=== PATIENT | male | born 1985 | race Caucasian/White ===

== ENCOUNTER 2022-07-02 08:14 | Outpatient (REF) | payer OTHER, SELFPAY ==
[2022-07-02 08:38] LABS: MANUAL DIFF FLAG NO
[2022-07-02 09:20] LABS: Basophils Percent Auto 0.5 % (0-2); Eosinophils Absolute Auto 0.3 X10*3/uL (0.0-0.4); Eosinophils Percent Auto 5.2 % (0-4); Hematocrit 39.9 % (42.0-52.0); Hemoglobin 12.5 g/dl (14.0-18.0); Imm Gran Abs Auto 0.01 X10*3/uL (0.00-0.03); Imm Gran Pct Auto 0.2 % (0.0-0.4); Lymphocytes Absolute Auto 1.5 X10*3/uL (1.2-4.9); Lymphocytes Percent Auto 27.2 % (20-40); Mean Corpuscular HGB Conc 31.3 g/dl (31.0-36.0); Mean Corpuscular Hemoglobin 26.5 pg (27.0-33.0); Mean Corpuscular Volume 84.7 fL (80.0-98.0); Monocytes Absolute Auto 0.3 X10*3/uL (0.1-1.2); Monocytes Percent Auto 5.6 % (2-11); Neutrophils Absolute Auto 3.4 x10*3/uL (2.0-8.3); Neutrophils Percent Auto 61.3 % (45-73); Platelet Count 128 X10*3/uL (160-400); Red Blood Count 4.71 X10*6/uL (4.60-5.80); Red Cell Distribution Width 14.1 % (11.0-16.0); White Blood Count 5.6 X10*3/uL (4.8-10.8)
[2022-07-02 09:33] LABS: Alanine Aminotransferase 49 U/L (0-40); Albumin Level 3.8 g/dL (3.5-5.0); Alkaline Phosphatase 188 U/L (39-117); Anion Gap 12 (12-20); Aspartate Amino Transferase 72 U/L (5-37); Bilirubin Total 0.4 mg/dL (0.0-1.0); Blood Urea Nitrogen 7 mg/dL (9-16); Calcium 8.8 mg/dL (8.4-10.2); Carbon Dioxide 30 mmol/L (22-29); Chloride 104 mmol/L (96-108); Cholesterol 178 mg/dL; Estimated Glomerular Filt Rate > 60; Glucose Fasting 153 mg/dL (60-99); HDL Cholesterol 44 mg/dL; LDL Cholesterol Calculated 119 mg/dl; Potassium 4.1 mmol/L (3.3-5.1); Sodium 142 mmol/L (135-145); Total Protein 7.5 g/dL (6.5-8.0); Triglycerides 78 mg/dL
[2022-07-08 20:26] LABS: Testosterone, Free 1.6 pg/mL (35.0-155.0); Testosterone, Total 19 ng/dL (250-1100)
== END 2022-07-02 08:15 | disposition home or self-care (01) ==
LOC: HO.LAB 08:14
PROVIDERS: PCP Internal Medicine; Visit Provider Internal Medicine
DX: Z00.00 Encounter for general adult medical examination without abnormal findings (principal); R53.83 Other fatigue; G47.33 Obstructive sleep apnea (adult) (pediatric)
CPT/HCPCS: 36415; 80053; 80061; 82947; 84402; 84403; 85025

== ENCOUNTER → 2022-12-09 08:48 | Outpatient (BNVA) | payer OTHER, SELFPAY | PROVIDERS: PCP Internal Medicine; Visit Provider Physician Assistant Medical | DX: S00.83XA Contusion of other part of head, initial encounter (principal); S50.12XA Contusion of left forearm, initial encounter; S50.11XA Contusion of right forearm, initial encounter; W10.2XXA Fall (on)(from) incline, initial encounter; M23.92 Unspecified internal derangement of left knee | CPT/HCPCS: 73564; 99203 ==

== ENCOUNTER → 2022-12-23 07:56 | Outpatient (BNVA) | payer OTHER, SELFPAY | PROVIDERS: PCP Internal Medicine; Visit Provider Physician Assistant Medical | DX: M23.92 Unspecified internal derangement of left knee (principal); S00-T88 Injury, poisoning and certain other consequences of external causes; W18.30XD Fall on same level, unspecified, subsequent encounter | CPT/HCPCS: 99213 ==

== ENCOUNTER 2023-02-14 11:01 | Outpatient (REF) | payer OTHER, SELFPAY ==
[2023-02-14 13:37] LABS: MANUAL DIFF FLAG NO
[2023-02-14 13:41] LABS: Basophils Percent Auto 0.7 % (0-2); Eosinophils Absolute Auto 0.4 X10*3/uL (0.0-0.4); Hematocrit 38.8 % (42.0-52.0); Hemoglobin 11.9 g/dl (14.0-18.0); Imm Gran Abs Auto 0.02 X10*3/uL (0.00-0.03); Imm Gran Pct Auto 0.3 % (0.0-0.4); Lymphocytes Absolute Auto 1.7 X10*3/uL (1.2-4.9); Lymphocytes Percent Auto 27.9 % (20-40); Mean Corpuscular HGB Conc 30.7 g/dl (31.0-36.0); Mean Corpuscular Hemoglobin 26.3 pg (27.0-33.0); Mean Corpuscular Volume 85.7 fL (80.0-98.0); Mean Platelet Volume 11.9 fL (9.4-12.4); Monocytes Absolute Auto 0.4 X10*3/uL (0.1-1.2); Monocytes Percent Auto 6.4 % (2-11); Neutrophils Absolute Auto 3.5 x10*3/uL (2.0-8.3); Neutrophils Percent Auto 58.7 % (45-73); Platelet Count 108 X10*3/uL (160-400); Red Blood Count 4.53 X10*6/uL (4.60-5.80); Red Cell Distribution Width 14.7 % (11.0-16.0)
[2023-02-14 13:52] LABS: Estimated Average Glucose 105 mg/dL; Hemoglobin A1c % 5.3 %
[2023-02-14 13:54] LABS: Alanine Aminotransferase 21 U/L (0-40); Albumin Level 3.6 g/dL (3.5-5.0); Alkaline Phosphatase 144 U/L (39-117); Anion Gap 13 (12-20); Aspartate Amino Transferase 29 U/L (5-37); Bilirubin Total 0.4 mg/dL (0.0-1.0); Blood Urea Nitrogen 14 mg/dL (9-16); Calcium 8.7 mg/dL (8.4-10.2); Carbon Dioxide 29 mmol/L (22-29); Chloride 104 mmol/L (96-108); Cholesterol 160 mg/dL; Estimated Glomerular Filt Rate > 60; Glucose Random 108 mg/dL (60-115); Potassium 4.2 mmol/L (3.3-5.1); Sodium 142 mmol/L (135-145)
== END 2023-02-14 11:02 | disposition home or self-care (01) ==
LOC: HO.10HDL 11:01
PROVIDERS: Visit Provider Internal Medicine
DX: F98.8 Other specified behavioral and emotional disorders with onset usually occurring in childhood and adolescence (principal); K21.9 Gastro-esophageal reflux disease without esophagitis; E66.9 Obesity, unspecified; E11.9 Type 2 diabetes mellitus without complications
CPT/HCPCS: 36415; 80053; 82465; 83036; 85025

== ENCOUNTER 2023-08-30 16:39 | Outpatient (REF) | payer OTHER, SELFPAY ==
[2023-08-30 16:50] LABS: MANUAL DIFF FLAG NO
[2023-08-30 18:00] LABS: Basophils Percent Auto 0.5 % (0-2); Eosinophils Absolute Auto 0.3 X10*3/uL (0.0-0.4); Hematocrit 41.2 % (42.0-52.0); Hemoglobin 12.8 g/dl (14.0-18.0); Imm Gran Abs Auto 0.01 X10*3/uL (0.00-0.03); Imm Gran Pct Auto 0.2 % (0.0-0.4); Lymphocytes Absolute Auto 2.1 X10*3/uL (1.2-4.9); Lymphocytes Percent Auto 33.1 % (20-40); Mean Corpuscular HGB Conc 31.1 g/dl (31.0-36.0); Mean Corpuscular Hemoglobin 25.9 pg (27.0-33.0); Mean Corpuscular Volume 83.2 fL (80.0-98.0); Mean Platelet Volume 11.8 fL (9.4-12.4); Monocytes Absolute Auto 0.4 X10*3/uL (0.1-1.2); Monocytes Percent Auto 6.8 % (2-11); Neutrophils Absolute Auto 3.5 x10*3/uL (2.0-8.3); Neutrophils Percent Auto 54.4 % (45-73); Platelet Count 120 X10*3/uL (160-400); Red Blood Count 4.95 X10*6/uL (4.60-5.80); Red Cell Distribution Width 14.4 % (11.0-16.0); White Blood Count 6.4 X10*3/uL (4.8-10.8)
[2023-08-30 18:21] LABS: Anion Gap 10 (12-20); Blood Urea Nitrogen 9 mg/dL (9-16); Calcium 8.8 mg/dL (8.4-10.2); Carbon Dioxide 28 mmol/L (22-29); Chloride 105 mmol/L (96-108); Estimated Glomerular Filt Rate > 60; Glucose Random 149 mg/dL (60-115); Iron 43 mcg/dL (45-160); Percent Iron Saturation 14 % (15-50); Potassium 3.8 mmol/L (3.3-5.1); Sodium 139 mmol/L (135-145); Total Iron Binding Capacity 311 mcg/dL (228-428); Unsaturated Iron Binding 268 ug/dL
== END 2023-08-30 16:40 | disposition home or self-care (01) ==
LOC: HO.LAB 16:39
PROVIDERS: PCP Internal Medicine; Visit Provider Internal Medicine
DX: D64.9 Anemia, unspecified (principal); K21.9 Gastro-esophageal reflux disease without esophagitis; F98.8 Other specified behavioral and emotional disorders with onset usually occurring in childhood and adolescence
CPT/HCPCS: 36415; 80048; 83540; 85025

== ENCOUNTER 2024-03-26 10:15 | Outpatient (REF) | payer OTHER, SELFPAY ==
[2024-03-26 11:07] LABS: MANUAL DIFF FLAG NO
[2024-03-26 11:11] LABS: Basophils Percent Auto 0.6 % (0-2); Eosinophils Absolute Auto 0.2 X10*3/uL (0.0-0.4); Eosinophils Percent Auto 4.3 % (0-4); Hematocrit 41.9 % (42.0-52.0); Hemoglobin 13.3 g/dl (14.0-18.0); Imm Gran Abs Auto 0.01 X10*3/uL (0.00-0.03); Imm Gran Pct Auto 0.2 % (0.0-0.4); Lymphocytes Absolute Auto 1.5 X10*3/uL (1.2-4.9); Lymphocytes Percent Auto 27.3 % (20-40); Mean Corpuscular HGB Conc 31.7 g/dl (31.0-36.0); Mean Corpuscular Hemoglobin 26.2 pg (27.0-33.0); Mean Corpuscular Volume 82.6 fL (80.0-98.0); Mean Platelet Volume 11.1 fL (9.4-12.4); Monocytes Absolute Auto 0.4 X10*3/uL (0.1-1.2); Monocytes Percent Auto 6.5 % (2-11); Neutrophils Absolute Auto 3.3 x10*3/uL (2.0-8.3); Neutrophils Percent Auto 61.1 % (45-73); Red Blood Count 5.07 X10*6/uL (4.60-5.80); Red Cell Distribution Width 15.2 % (11.0-16.0); White Blood Count 5.4 X10*3/uL (4.8-10.8)
[2024-03-26 11:12] LABS: Platelet Count 99 X10*3/uL (160-400)
[2024-03-26 11:25] LABS: Alanine Aminotransferase 20 U/L (0-40); Albumin Level 3.5 g/dL (3.5-5.0); Alkaline Phosphatase 93 U/L (39-117); Anion Gap 14 (12-20); Aspartate Amino Transferase 35 U/L (5-37); Bilirubin Total 0.9 mg/dL (0.0-1.0); Blood Urea Nitrogen 10 mg/dL (9-16); Calcium 8.6 mg/dL (8.4-10.2); Carbon Dioxide 29 mmol/L (22-29); Chloride 105 mmol/L (96-108); Cholesterol 158 mg/dL (<200); Estimated Glomerular Filt Rate > 60; Glucose Fasting 124 mg/dL (60-99); HDL Cholesterol 46 mg/dL (>40); LDL Cholesterol Calculated 94 mg/dL (<100); Potassium 4.2 mmol/L (3.3-5.1); Sodium 144 mmol/L (135-145); Total Protein 7.3 g/dL (6.5-8.0); Triglycerides 94 mg/dL (<150)
== END 2024-03-26 10:16 | disposition home or self-care (01) ==
LOC: HO.10HDL 10:15
PROVIDERS: Visit Provider Internal Medicine
DX: K76.0 Fatty (change of) liver, not elsewhere classified (principal); K21.9 Gastro-esophageal reflux disease without esophagitis; D64.9 Anemia, unspecified; F90.0 Attention-deficit hyperactivity disorder, predominantly inattentive type
CPT/HCPCS: 36415; 80053; 80061; 85025

== ENCOUNTER 2024-09-18 09:35 | Outpatient (REF) | payer OTHER, SELFPAY ==
[2024-09-18 10:52] LABS: MANUAL DIFF FLAG NO
[2024-09-18 11:01] LABS: Basophils Percent Auto 0.8 % (0-2); Eosinophils Absolute Auto 0.2 X10*3/uL (0.0-0.4); Eosinophils Percent Auto 5.1 % (0-4); Hematocrit 38.8 % (42.0-52.0); Hemoglobin 12.4 g/dl (14.0-18.0); Lymphocytes Absolute Auto 1.3 X10*3/uL (1.2-4.9); Lymphocytes Percent Auto 34.4 % (20-40); Mean Corpuscular Hemoglobin 25.7 pg (27.0-33.0); Mean Corpuscular Volume 80.5 fL (80.0-98.0); Mean Platelet Volume 11.7 fL (9.4-12.4); Monocytes Absolute Auto 0.3 X10*3/uL (0.1-1.2); Monocytes Percent Auto 8.2 % (2-11); Neutrophils Percent Auto 51.5 % (45-73); Platelet Count 107 X10*3/uL (160-400); Red Blood Count 4.82 X10*6/uL (4.60-5.80); Red Cell Distribution Width 14.8 % (11.0-16.0); White Blood Count 3.9 X10*3/uL (4.8-10.8)
[2024-09-18 11:10] LABS: Estimated Average Glucose 212 mg/dL; Hemoglobin A1C 236.8664 umol/L; Total Hemoglobin (HGBA1C) 3169.7563 umol/L
[2024-09-18 11:19] LABS: Alanine Aminotransferase 25 U/L (0-40); Albumin Level 3.5 g/dL (3.5-5.0); Alkaline Phosphatase 135 U/L (39-117); Anion Gap 8 (12-20); Aspartate Amino Transferase 54 U/L (5-37); Bilirubin Total 0.7 mg/dL (0.0-1.0); Blood Urea Nitrogen 7 mg/dL (9-16); Calcium 8.3 mg/dL (8.4-10.2); Carbon Dioxide 31 mmol/L (22-29); Chloride 103 mmol/L (96-108); Estimated Glomerular Filt Rate > 60; Glucose Random 221 mg/dL (60-115); Potassium 3.8 mmol/L (3.3-5.1); Sodium 138 mmol/L (135-145); Total Protein 7.2 g/dL (6.5-8.0)
[2024-09-18 11:37] LABS: Free T4 (Free Thyroxine) 0.81 ng/dL (0.71-1.85); Thyroid Stimulating Hormone 1.22 uIU/mL (0.32-4.0)
== END 2024-09-18 09:36 | disposition home or self-care (01) ==
LOC: HO.10HDL 09:35
PROVIDERS: Visit Provider Internal Medicine
DX: K76.0 Fatty (change of) liver, not elsewhere classified (principal); G47.33 Obstructive sleep apnea (adult) (pediatric); R73.03 Prediabetes
CPT/HCPCS: 36415; 80053; 83036; 84439; 84443; 85025

== ENCOUNTER → 2024-11-06 07:54 | Outpatient (BNVA) | payer OTHER, SELFPAY | PROVIDERS: PCP Internal Medicine; Visit Provider Physician Assistant Medical | DX: S16.1XXA Strain of muscle, fascia and tendon at neck level, initial encounter (principal); S29.012A Strain of muscle and tendon of back wall of thorax, initial encounter; S00.93XA Contusion of unspecified part of head, initial encounter; S50.02XA Contusion of left elbow, initial encounter; W00.0XXA Fall on same level due to ice and snow, initial encounter | CPT/HCPCS: 99203 ==

== ENCOUNTER → 2024-11-13 13:49 | Outpatient (BNVA) | payer OTHER, SELFPAY | PROVIDERS: PCP Internal Medicine; Visit Provider Registered Nurse | DX: S16.1XXA Strain of muscle, fascia and tendon at neck level, initial encounter (principal); S29.012A Strain of muscle and tendon of back wall of thorax, initial encounter; S00.93XA Contusion of unspecified part of head, initial encounter; S50.02XA Contusion of left elbow, initial encounter; W00.0XXA Fall on same level due to ice and snow, initial encounter; Z02.79 Encounter for issue of other medical certificate | CPT/HCPCS: 99213 ==

== ENCOUNTER → 2024-11-20 13:28 | Outpatient (BNVA) | payer OTHER, SELFPAY | PROVIDERS: PCP Internal Medicine; Visit Provider Physician Assistant Medical | DX: S16.1XXA Strain of muscle, fascia and tendon at neck level, initial encounter (principal); S29.012A Strain of muscle and tendon of back wall of thorax, initial encounter; W00.0XXA Fall on same level due to ice and snow, initial encounter; Z02.79 Encounter for issue of other medical certificate | CPT/HCPCS: 99213 ==

== ENCOUNTER 2024-12-28 14:49 | Outpatient (REF) | payer OTHER, SELFPAY ==
[2024-12-28 17:12] LABS: Hemoglobin 12.8 g/dl (14.0-18.0); Monocytes Absolute Auto 0.5 X10*3/uL (0.1-1.2); PLT CLUMP 1; SCAN SMEAR FLAG 1
[2024-12-28 17:14] LABS: Basophils Percent Auto 0.4 % (0-2); Eosinophils Absolute Auto 0.3 X10*3/uL (0.0-0.4); Eosinophils Percent Auto 4.6 % (0-4); Hematocrit 40.5 % (42.0-52.0); Imm Gran Abs Auto 0.02 X10*3/uL (0.00-0.03); Imm Gran Pct Auto 0.3 % (0.0-0.4); Lymphocytes Absolute Auto 2.2 X10*3/uL (1.2-4.9); Lymphocytes Percent Auto 32.1 % (20-40); Mean Corpuscular HGB Conc 31.6 g/dl (31.0-36.0); Mean Corpuscular Volume 82.3 fL (80.0-98.0); Mean Platelet Volume 11.2 fL (9.4-12.4); Monocytes Percent Auto 8.1 % (2-11); Neutrophils Absolute Auto 3.6 x10*3/uL (2.0-8.3); Neutrophils Percent Auto 54.5 % (45-73); Red Blood Count 4.92 X10*6/uL (4.60-5.80); Red Cell Distribution Width 15.4 % (11.0-16.0)
[2024-12-28 17:30] LABS: Estimated Average Glucose 137 mg/dL; Hemoglobin A1c % 6.4 % (<6.0); Total Hemoglobin (HGBA1C) 3426.6241 umol/L
[2024-12-28 17:32] LABS: MANUAL DIFF FLAG NO; Platelet Count 105 X10*3/uL (160-400); White Blood Count 6.7 X10*3/uL (4.8-10.8)
[2024-12-28 18:12] LABS: Alanine Aminotransferase 21 U/L (0-40); Albumin Level 3.6 g/dL (3.5-5.0); Anion Gap 8 (12-20); Aspartate Amino Transferase 42 U/L (5-37); Bilirubin Total 0.5 mg/dL (0.0-1.0); Blood Urea Nitrogen 10 mg/dL (9-16); Carbon Dioxide 29 mmol/L (22-29); Chloride 109 mmol/L (96-108); Estimated Glomerular Filt Rate > 60; Glucose Random 69 mg/dL (60-115); Iron 34 mcg/dL (45-160); Percent Iron Saturation 11 % (15-50); Potassium 3.9 mmol/L (3.3-5.1); Sodium 142 mmol/L (135-145); Total Iron Binding Capacity 315 mcg/dL (228-428); Total Protein 7.3 g/dL (6.5-8.0); Unsaturated Iron Binding 281 ug/dL
[2024-12-28 18:27] LABS: Alkaline Phosphatase 133 U/L (39-117)
[2024-12-28 20:28] LABS: Folate 9.3 ng/mL (> or = 4.0); Vitamin B12 688 pg/mL (200-900)
== END 2024-12-28 14:50 | disposition home or self-care (01) ==
LOC: HO.LAB 14:49
PROVIDERS: PCP Internal Medicine; Visit Provider Internal Medicine
DX: E11.69 Type 2 diabetes mellitus with other specified complication (principal); E66.01 Morbid (severe) obesity due to excess calories; Z68.42 Body mass index [BMI] 45.0-49.9, adult; R79.89 Other specified abnormal findings of blood chemistry; R41.840 Attention and concentration deficit; F32.9 Major depressive disorder, single episode, unspecified; F98.8 Other specified behavioral and emotional disorders with onset usually occurring in childhood and adolescence; Z79.84 Long term (current) use of oral hypoglycemic drugs; Z79.899 Other long term (current) drug therapy
CPT/HCPCS: 36415; 80053; 82607; 82746; 83036; 83540; 85025; 96127

== ENCOUNTER 2024-12-28 14:49 | Outpatient (AMB) | payer OTHER, SELFPAY ==
--- NOTE | 2024-12-28 14:53 | MHC.PC.OV ---
Vital Signs 12/28/24 14:55 Height 5 ft 10 in Weight 316 lb BMI 45.3 BP 126/70 Respiration 14 Pulse 77 Pulse Source Pulse Oximeter Temp 97.8 F Temp Source Temporal Artery Scan Pulse Oximetry (%) 98 Oxygen Delivery Method Room Air Intake Visit Reasons: Routine Cigar Roller Required: No Accompanied by: Self / Same As Patient Allergies No Known Allergies Allergy (Mild, Unverified 12/28/24 14:53) NONE Medication List - Last Reconciled 12/28/24 by Kayli Junior MD blood-glucose meter (FreeStyle [place] Lite kit) As directed dextroamphetamine-amphetamine 20 mg (Adderall) 20 mg PO BID 60 days fluoxetine 60 mg PO QAM glipizide ER 5 mg PO BID lancets (FreeStyle Lancets) As directed omeprazole 20 mg PO BID Ozempic (semaglutide) 1 mg (0.75 mL) subcut QWEEK NS Tobacco use date assessed: 12/28/24 Dental Screening Dental Screen Date: 12/28/24 Did you have a dental visit in the last 12 months?: Yes Did you have a dental problem in the last 6 months where you did not have access to dental care?: No HPI HPI Comments History of Present Illness Details 39 year old male with a past medical history of GERD, depression, ADD, anemia, opiate use disorder, newer diabetes presenting for follow up. Last seen Saman by PCP Type 2 DM: on glipizide ER 5mg bid and started on ozempic 0.25mg weekly. Reports fasting glucose now in 120s. Has lost a few pounds Mild pancytopenia on labs feeling okay will monitor BH: on adderall 20mg twice daily and prozac. Feels stable ROS CONSTITUTIONAL: Denies weight loss, fever and chills. HEENT: Denies changes in vision and hearing. RESPIRATORY: Denies SOB and cough. CV: Denies palpitations and CP GI: Denies abdominal pain, nausea, vomiting and diarrhea. : Denies dysuria and urinary frequency. MSK: Denies new myalgia and joint pain. SKIN: Denies rash and pruritus. NEUROLOGICAL: Denies headache PSYCHIATRIC: Denies recent changes in mood. PHYSICAL EXAM: GENERAL: Alert and oriented x 3. NAD EYES: EOMI. Anicteric. HENT: Moist mucous membranes. No scleral icterus. No cervical lymphadenopathy. LUNGS: Clear to auscultation bilaterally. CARDIOVASCULAR: Regular rate and rhythm. No murmur. No JVD. ABDOMEN: Soft, non-tender +bs EXTREMITIES: No edema. Non-tender. SKIN: No rashes or lesions. Warm. NEUROLOGIC: No focal neurological deficits. CN II-XII grossly intact PSYCHIATRIC: Cooperative. Appropriate mood and affect [facility] Medical History Type 2 diabetes mellitus associated with morbid obesity Family History Father Bone cancer Esophageal cancer Mother Emphysema lung Active asthma Ovarian cancer Social History Housing: Apartment Alcohol intake: current Alcohol intake frequency: does not drink Patient Tobacco Use Status: Former Tobacco user service: No Current occupational status: employed Cognitive needs: No Hearing needs: No Vision needs: No Questionnaire PHQ-9 Over the last 2 weeks, how often have you been bothered by any of the following problems? 1. Little interest or pleasure in doing things: not at all 2. Feeling down, depressed, or hopeless: not at all 3. Trouble falling or staying asleep, or sleeping too much: not at all 4. Feeling tired or having little energy: not at all 5. Poor appetite or overeating: not at all 6. Feeling bad about yourself - or that you are a failure or have let yourself or your family down: not at all 7. Trouble concentrating on things, such as reading the newspaper or watching television: not at all 8. Moving or speaking so slowly that other people could have noticed. Or the opposite - being so fidgety or restless that you have been moving around a lot more than usual: not at all 9. Thoughts that you would be better off or of hurting yourself in some way: not at all Total score: 0 Depression Screening Interpretation: Negative Depression Screening Done: Yes 25511 - PHQ-9 Billing: Yes Source: Developed by Drs. Isaac Ramírez, Charisma Holden, Pablito Rodrigues and colleagues, with an educational river from [employer] Thrive Questionnaire Date Thrive assessed: 12/28/24 I am a: Patient What is your living situation today?: I have a steady place to live Within the past 12 months, did the food you bought not last and you didn't have the money to get more?: Never true Within the past 12 months, did you worry whether your food would run out before you got money to buy more?: Never true Do you have trouble paying for medicines?: No Do you have trouble getting transportation to medical appointments?: No Do you have trouble paying your heating and electricity bill?: No Do you have trouble taking care of your child, family member or friend?: No Do you have trouble with day-to-day activities such as bathing, preparing meals, shopping, managing finances, etc.?: No Are you currently unemployed and looking for a job?: No Are you interested in more education?: No Please select the resources that you would like help with: None THRIVE Score: 0 AUDIT C Alcohol Use Questionnaire (AUDIT-C) 1. How often do you have a drink containing alcohol?: Never 3. How often do you have six or more drinks on one occasion?: Never Total Score: 0 PJ-7 AMB Questionnaire PJ-7 Date PJ - 7 assessed: 12/28/24 Feeling nervous, anxious, or on edge: 1 = Several days Not being able to stop or control worryin = Not at all Worrying too much about different things: 1 = Several days Trouble relaxin = Several days Being so restless that it is hard to sit still: 0 = Not at all Becoming easily annoyed or irritable: 1 = Several days Feeling afraid as if something awful might happen: 1 = Several days Total PJ-7 score (0-4 normal; 5-9 mild; 10-14 moderate; 15-21 severe): 5 Source: Developed by Drs. Isaac Ramírez, Charisma Holden, Pablito Rodrigues and colleagues, with an educational river from [employer]. Physical exam (Primary Care) Vital Signs: Last Vital Signs Temp 97.8 F 12/28/24 14:55 Pulse 77 12/28/24 14:55 Resp 14 12/28/24 14:55 BP 126/70 12/28/24 14:55 Pulse Ox 98 12/28/24 14:55 Oxygen Delivery Method Room Air 12/28/24 14:55 BMI result Body Mass Index 45.3 Tobacco/Smoking Status: Tobacco use Status Tobacco use date assessed 12/28/24 12/28/24 14:55 Patient Tobacco Use Status Former Tobacco user 12/28/24 15:03 PHQ-9: PHQ-9 Score PHQ-9: Total score 0 12/28/24 14:55 Depression Screening Interpretation: Negative Thrive Assessment: Date of Thrive Assessment Date Thrive assessed 12/28/24 12/28/24 14:55 Coding Level of Care Code New Pt Level 4 (06225) Complex EM visit Add On G2211 Diagnoses Type 2 diabetes mellitus associated with morbid obesity E11.69; E66.01 Abnormal CBC R79.89 Attention deficit R41.840 Additional Codes PHQ-9 - 74529 - PHQ-9 Billing: Yes ([id number]) Assessment & Plan Assessment & Plan (1) Type 2 diabetes mellitus associated with morbid obesity: Code(s): E11.69 - Type 2 diabetes mellitus with other specified complication; E66.01 - Morbid (severe) obesity due to excess calories Category: Medical (2) Abnormal CBC: Code(s): R79.89 - Other specified abnormal findings of blood chemistry Category: Medical (3) Attention deficit: Code(s): R41.840 - Attention and concentration deficit Category: Medical Plan 39 y/o to establish care Meds reconciled DM-improving control per patient. A1C due. Increase ozempic to 1mg weekly Return in 3 months Orders: Orders Vitamin B12 and Folate Today E11.69 - Type 2 diabetes mellitus with other specified complication, E66.01 - Morbid (severe) obesity due to excess calories, R79.89 - Other specified abnormal findings of blood chemistry Comprehensive Met. Panel 3 Months E11.69 - Type 2 diabetes mellitus with other specified complication, E66.01 - Morbid (severe) obesity due to excess calories Hemoglobin A1c Today E11.69 - Type 2 diabetes mellitus with other specified complication, E66.01 - Morbid (severe) obesity due to excess calories, R79.89 - Other specified abnormal findings of blood chemistry Complete Blood Count Auto Diff Today E11.69 - Type 2 diabetes mellitus with other specified complication, E66.01 - Morbid (severe) obesity due to excess calories, R79.89 - Other specified abnormal findings of blood chemistry IRON PROFILE Today E11.69 - Type 2 diabetes mellitus with other specified complication, E66.01 - Morbid (severe) obesity due to excess calories, R79.89 - Other specified abnormal findings of blood chemistry Hemoglobin A1c 3 Months E11.69 - Type 2 diabetes mellitus with other specified complication, E66.01 - Morbid (severe) obesity due to excess calories Comprehensive Met. Panel Today E11.69 - Type 2 diabetes mellitus with other specified complication, E66.01 - Morbid (severe) obesity due to excess calories Medications: New Ozempic (semaglutide) 1 mg (0.75 mL) subcut QWEEK 9 mL 3RF NS E11.69 - Type 2 diabetes mellitus with other specified complication, E66.01 - Morbid (severe) obesity due to excess calories, R79.89 - Other specified abnormal findings of blood chemistry Changed From dextroamphetamine-amphetamine 20 mg (Adderall) administer doses at least 4-6 hours apart; Partial Fill upon patient request. 20 mg PO BID 60 tabs 0RF R41.840 - Attention and concentration deficit To dextroamphetamine-amphetamine 20 mg (Adderall) administer doses at least 4-6 hours apart; Partial Fill upon patient request. 20 mg PO BID 60 days 120 tabs 0RF R41.840 - Attention and concentration deficit
[2024-12-28 14:55] VITALS: BP 126/70; PULSE 77; RESP 14; TEMP 36.6; O2SAT 98; BMI 45.3
== END 2024-12-28 15:27 | disposition home or self-care (01) ==
LOC: HO.HMCHD 14:50
PROVIDERS: PCP Internal Medicine; Visit Provider Internal Medicine
DX: E11.69 Type 2 diabetes mellitus with other specified complication (principal); E66.01 Morbid (severe) obesity due to excess calories; R79.89 Other specified abnormal findings of blood chemistry; R41.840 Attention and concentration deficit

== ENCOUNTER 2025-06-18 16:12 | Outpatient (AMB) | payer OTHER, SELFPAY ==
--- NOTE | 2025-06-18 16:17 | A.OFFPC_ITS ---
Vital Signs 06/18/25 16:22 Height 5 ft 10 in Weight 139.253 kg BMI 44.0 Respiration 16 Pulse 70 Pulse Source Pulse Oximeter Temp 98.2 F Temp Source Temporal Artery Scan Pulse Oximetry (%) 99 Oxygen Delivery Method Room Air Intake Visit Reasons: Routine - see comments Marketing Technology Coordinator Required: No Accompanied by: Self / Same As Patient Allergies No Known Allergies Allergy (Mild, Unverified 06/18/25 16:20) NONE Medication List - Last Reconciled 06/18/25 by TONY Escamilla blood-glucose meter (FreeStyle [place] Lite kit) As directed dextroamphetamine-amphetamine 20 mg (Adderall) 20 mg PO BID 30 days fluoxetine 60 mg (3 x 20 mg) PO DAILY lancets (FreeStyle Lancets) As directed omeprazole 40 mg PO BID Tobacco use date assessed: 12/28/24 Dental Screening Dental Screen Date: 12/28/24 HPI HPI Comments History of Present Illness Details 39-year-old male with history of GERD, a nxiety with panic, ADHD, type 2 diabetes, hyperlipidemia who is morbidly obese presents to the office today for management of chronic conditions/follow-up. Type 2 diabetes- fasting glucose around 90, no symptoms. Last hemoglobin A1c 6.4%. Continues on Ozempic 2 mg weekly but discontinued the glipizide due to lower sugars. Anxiety/ADHD- overall managed with fluoxetine 60mg, adderall 20mg BID. Does still struggle with agoraphobia. Has seen a therapist in the past, but has since worsened. Panic attacks occur about twice weekly. GERD-reporting symptoms of globus sensation and dysphagia intermittently ongoing for about a year. States he feels this when eating solids or swallowing pills. Feels symptoms are worse in the morning. He is compliant with omeprazole Concerns: Ingrown toenail b/l great toes. No purulent drainage Globus sensation/dysphagia as above Health maintenance: Colonoscopy is to start at age 46 Eye exam is up-to-date ROS: General: No fevers, malaise, unintentional weight loss HEENT: No blurred vision, diplopia. No sore throat, nasal congestion, rhinorrhea, sinus pain, ear pain Cardiovascular: No chest pain, palpitations, or leg edema Respiratory: No shortness of breath, wheezing, cough GI: see hpi MSK: No myalgia, back pain Neuro: No headaches, weakness, paresthesias Skin: No rashes or lesions. see hpi EXAM: Constitutional - Awake and Alert, No apparent distress Eyes - PERRL Cardiovascular - S1S2, RRR, No edema Respiratory - Normal lung expansion, Normal respiratory effort, No respiratory distress, CTA bilaterally Extremities - no calf tenderness bilaterally, no swelling Skin - Warm/Dry. Ingrown toenails of the medial nailfold bilateral great toes, no erythema or drainage noted Neurological - Alert & oriented x3 Psychological - Appropriate affect [facility] Medical History (Updated 06/18/25 @ 17:02 by TONY Escamilla) Anxiety Drug abuse in remission History of hepatitis C Anemia GERD (gastroesophageal reflux disease) Hyperlipidemia Type 2 diabetes mellitus associated with morbid obesity Family History Father Bone cancer Esophageal cancer Mother Emphysema lung Active asthma Ovarian cancer Social History Housing: Apartment Alcohol intake: current Alcohol intake frequency: does not drink Patient Tobacco Use Status: Former Tobacco user service: No Current occupational status: employed Cognitive needs: No Hearing needs: No Vision needs: No Questionnaire Thrive Questionnaire Date Thrive assessed: 12/28/24 PJ-7 AMB Questionnaire PJ-7 Date PJ - 7 assessed: 12/28/24 Source: Developed by Drs. Isaac Ramírez, Charisma Holden, Pablito Rodrigues and colleagues, with an educational river from [employer]. Physical exam (Primary Care) Vital Signs: Last Vital Signs Temp 98.2 F 06/18/25 16:22 Pulse 70 06/18/25 16:22 Resp 16 06/18/25 16:22 Pulse Ox 99 06/18/25 16:22 Oxygen Delivery Method Room Air 06/18/25 16:22 BMI result Body Mass Index 44.0 Tobacco/Smoking Status: Tobacco use Status Tobacco use date assessed 12/28/24 06/18/25 16:19 Patient Tobacco Use Status Former Tobacco user 06/18/25 16:19 Thrive Assessment: Date of Thrive Assessment Date Thrive assessed 12/28/24 06/18/25 16:19 Coding Level of Care Code Est Pt Level 4 (98842) Complex EM visit Add On G2211 Diagnoses Type 2 diabetes mellitus associated with morbid obesity E11.69; E66.01 Globus sensation R09.A2 Anemia D64.9 Ingrown toenail of both feet L60.0 Anxiety F41.9 Assessment & Plan Assessment & Plan (1) Type 2 diabetes mellitus associated with morbid obesity: Code(s): E11.69 - Type 2 diabetes mellitus with other specified complication; E66.01 - Morbid (severe) obesity due to excess calories Category: Medical Plan: Hemoglobin A1c ordered. Given ongoing morbid obesity and patient desire to lose weight well managing glucose levels. Will discontinue Ozempic and initiate Wegovy. Remain off of glipizide to prevent hypoglycemia. Continue diabetic eye exams annually. Commended on weight loss efforts thus far (2) Globus sensation: Code(s): R09.A2 - Foreign body sensation, throat Category: Medical Plan: With associated dysphagia. Referred to gastroenterology for consideration of EGD. Increase omeprazole to 40 mg twice daily. Avoid triggering food items (3) Anemia: Code(s): D64.9 - Anemia, unspecified Category: Medical Plan: CBC and iron panel ordered (4) Ingrown toenail of both feet: Code(s): L60.0 - Ingrowing nail Category: Medical Plan: Referred to Podiatry (5) Anxiety: Code(s): F41.9 - Anxiety disorder, unspecified Category: Medical Plan: With associated panic and agoraphobia. Continue Prozac 60 mg daily. He is also given a short course of Xanax to use only as needed for panic attacks. Avoid using this when driving. Counseled on side effects. Recommend seeking out a therapist. Plan Follow-up in the office in 4 months. Labs to be completed today as well as several days prior to next visit Orders: Orders Hemoglobin A1c Today E11.69 - Type 2 diabetes mellitus with other specified complication, E66.01 - Morbid (severe) obesity due to excess calories, E78.5 - Hyperlipidemia, unspecified, K21.9 - Gastro-esophageal reflux disease without esophagitis Liver Panel Today E11.69 - Type 2 diabetes mellitus with other specified complication, E66.01 - Morbid (severe) obesity due to excess calories, E78.5 - Hyperlipidemia, unspecified, K21.9 - Gastro-esophageal reflux disease without esophagitis IRON PROFILE Today D64.9 - Anemia, unspecified, R09.A2 - Foreign body sensation, throat Hemoglobin A1c 4 Months E11.69 - Type 2 diabetes mellitus with other specified complication, E66.01 - Morbid (severe) obesity due to excess calories Basic Metabolic Panel Today E11.69 - Type 2 diabetes mellitus with other specified complication, E66.01 - Morbid (severe) obesity due to excess calories, E78.5 - Hyperlipidemia, unspecified, K21.9 - Gastro-esophageal reflux disease without esophagitis Lipid Panel Today E11.69 - Type 2 diabetes mellitus with other specified complication, E66.01 - Morbid (severe) obesity due to excess calories, E78.5 - Hyperlipidemia, unspecified, K21.9 - Gastro-esophageal reflux disease without esophagitis Microalbumin, Random (w Creat) Today E11.69 - Type 2 diabetes mellitus with other specified complication, E66.01 - Morbid (severe) obesity due to excess calories, E78.5 - Hyperlipidemia, unspecified, K21.9 - Gastro-esophageal reflux disease without esophagitis Complete Blood Count Auto Diff Today D64.9 - Anemia, unspecified Referrals Gastroenterology Referral K21.9 - Gastro-esophageal reflux disease without esophagitis, R09.A2 - Foreign body sensation, throat Podiatry Referral L60.0 - Ingrowing nail Medications: New omeprazole 40 mg PO BID 180 caps 0RF semaglutide (weight loss) (Wegovy) 2.4 mg (0.75 mL) subcut QWEEK 3 mL 3RF E11.69 - Type 2 diabetes mellitus with other specified complication, E66.01 - Morbid (severe) obesity due to excess calories alprazolam 0.5 mg PO DAILY PRN 30 tabs 0RF anxiety/panic Discontinued Ozempic (semaglutide) Discontinued Reason: Doctor's Order 2 mg (0.75 mL) subcut QWEEK 9 mL 3RF NS E11.69 - Type 2 diabetes mellitus with other specified complication, E66.01 - Morbid (severe) obesity due to excess calories glipizide ER Discontinued Reason: Doctor's Order 5 mg PO BID 180 tabs 1RF omeprazole Discontinued Reason: Doctor's Order 20 mg PO BID 60 caps 2RF Patient Instructions: Check [employer] for list of therapists
[2025-06-18 16:22] VITALS: PULSE 70; RESP 16; TEMP 36.8; O2SAT 99; BMI 44.0
--- OUTSIDE RECORDS SUMMARY | 2025-06-18 19:05 | XMS_ITS | Patient Health Record ---
Author Organization [facility] Address [address] [place] [id number] Care Team Providers Care Public Bath Attendant Name Role Phone Daniela (RETIRED) Colt TERRAZAS Primary Care Provide r Isaac [place] Unavailable [phone] Reason For Referral No Information Medications Medication SIG (Take, Route, Fr equency, Duration) Notes Start Date End Date Status oxyCODONE HCl 5 MG/5ML 5 ml as needed Or ally every 6 hrs Active PriLOSEC OTC 20 MG 1 tablet Orally Once a day Active Problems Problem Type SNOMED Code ICD Code Onset Dates Problem Status W/U Status Risk Notes Problem Chronic hepatitis C (544928357) Chronic hepatitis C without mention of hepatic coma (070.54) Active confirmed Problem Liver function tests abnormal (790705264) Nonspecific abnormal results of liver function study (794.8) Active confirmed Problem Chronic hepatitis C (247287710) Chronic hepatitis C (070.54) Active confirmed Problem Elevated liver enzymes level (632827147) Elevated liver enzymes (790.5) Active confirmed Plan Of Treatment Pending Test Test Name Order Date LIVER PROFILE 02/12/2015 LIVER PROFILE 10/18/2014 LIVER PROFILE 01/16/2015 LIVER PROFILE 09/10/2014 LIVER PROFILE 11/20/2014 CBC w DIFF 10/18/2014 CBC w DIFF 01/16/2015 CBC w DIFF 09/10/2014 CBC w DIFF 11/20/2014 ALPHA-FETOPROTEIN,TUMOR MARKER 4 HEPATITIS C VIRAL LOAD 11/20/2014 HEPATITIS C VIRAL LOAD 02/12/2015 HEPATITIS C VIRAL LOAD 10/18/2014 HEPATITIS C VIRAL LOAD 01/16/2015 Medical (General) History Medical History History ICD Code Chronic hepatitis C--Genotyp e 1A-liver biopsy in May 2011 with a Grade 2.5-3 hepatitis and Stage I-II/IV fibrosis Depression Substance abuse--last time w as in 06/2011--previous IVDA--off Methadone since 2011 Viral meningitis/Pneumonia Exercise-induced asthma Denies AK, stroke, diabetes and kidney d isease GERD--started Prilosec in --an upper GI series in October 2012 showed evidence of some reflux, but no obvious hiatal hernia nor any other significant pathology. Surgical History Surgery Date(Month/Year) Gastric band surgery---defla romeo completely due to trouble eating-Dr. Block 11/2012
--- OUTSIDE RECORDS SUMMARY | 2025-06-18 19:05 | XMS_ITS | Clinical Summary ---
Author Organization [facility] Address [address] [place] [address] Care Team Providers Care Hardening Machine Operator Name Role Phone Unavailable Primary Care Provider Unavailabl e Family History Medical History Relation Name Comments Diabetes Mother Diabetes Paternal Grandfather Diabetes Paternal Grandmother Relation Name Status Comments Mother Paternal Grandfather Paternal Grandmother Social History Tobacco Use Types Packs/Day Years Used Date Smoking Tobacco: Every Day Cigarettes Alcohol Use Standard Drinks/Week Comments Yes 0 (1 standard drink = 0.6 oz pur e alcohol) Sex and Gender Information Value Date Recorded Sex Assigned at Not on file Legal Sex Male 11:41 PM EST Gender Identity Not on file Sexual Orientation Not on file Obstetrics History Plan of Treatment Health Maintenance Due Date Last Done Comments DTaP,Tdap,and Td Vaccines (1 - Tdap) 2005 Hepatitis B Vaccines (1 of 3 - 19+ 3-dose series) 2005 Pneumococcal Vaccine: Pediat rics (0 to 5 Years) and At-Risk Patients (6 to 49 Years) (1 of 2 - PCV) 2005 Cholesterol Screening (Lipid Panel) 09/05/2022 HIV Screening 09/05/2022 Hepatitis C Screening 09/05/2022 Social Influencers of Health Screening 09/05/2022 Depression Screening 10/03/2024 COVID-19 Vaccine ( - 2023-2 5 season) 2025 Influenza Vaccine (#1) 2025 HIB Vaccines Aged Out No longer eligi ble based on patient's age to complete this topic HPV Vaccines Aged Out No longer eligi ble based on patient's age to complete this topic Hepatitis A Vaccines Aged Out No long er eligible based on patient's age to complete this topic IPV Vaccines Aged Out No longer eligi ble based on patient's age to complete this topic MMR Vaccines Aged Out No longer eligi ble based on patient's age to complete this topic Meningococcal ACWY Vaccine Aged Out N o longer eligible based on patient's age to complete this topic Meningococcal B Vaccine Aged Out No l onger eligible based on patient's age to complete this topic RSV Immunization Patients Un mau 20 months Aged Out No longer eligible b ased on patient's age to complete this topic Varicella Vaccines Aged Out No longer eligible based on patient's age to complete this topic
== END 2025-06-18 16:57 | disposition home or self-care (01) ==
LOC: HO.HMCHD 16:13
PROVIDERS: PCP Internal Medicine; Visit Provider Physician Assistant
DX: E11.69 Type 2 diabetes mellitus with other specified complication (principal); E66.01 Morbid (severe) obesity due to excess calories; R09.A2 Foreign body sensation, throat; D64.9 Anemia, unspecified; L60.0 Ingrowing nail; F41.9 Anxiety disorder, unspecified